=== PATIENT | female | born 2005 | race Caucasian/White ===

== ENCOUNTER 2024-05-01 20:12 | Emergency (ER) | payer OTHER ==
[2024-05-01 20:30] VITALS: BP 116/71; O2SAT 98
--- NOTE | 2024-05-01 20:51 | ED Physician Documentation ---
PD HPI SKIN - Stated complaint Stated Complaint: BAT EXPOSURE - Chief complaint Chief Complaint: Wound - History obtained from History obtained from: Patient - Additional information Additional information: 18-year-old female presents after getting hit in the head by a bat a few days ago. Today she felt some tingling sensation on the right side of the head. She did not get bit by the bat and had no injury but is fairly certain it was about that hit her while she was out walking a couple of days ago. She has not had any other symptoms. She is not vaccinated. PD PAST MEDICAL HISTORY - Past Medical History Past Medical History: No - Past Surgical History Past Surgical History: Yes HEENT: Tonsil/Adenoidectomy - Present Medications Home Medications: Ambulatory Orders Medication Instructions Recorded Confirmed No Known Home Medications 05/01/24 05/01/24 - Allergies Allergies/Adverse Reactions: Allergies Allergy/AdvReac Type Severity Reaction Status Date / Time No Known Drug Allergies Allergy Verified 05/01/24 20:25 - Social History Does the pt smoke?: No Smoking Status: Never smoker Does the pt drink ETOH?: No Does the pt have substance abuse?: No - Immunizations Immunizations are current?: Yes - POLST Patient has POLST: No PD ED PE NORMAL - Vitals Vital signs reviewed: Yes - General General: Alert and oriented X 3, No acute distress, Well developed/nourished - HEENT HEENT: Atraumatic, Moist mucous membranes - Cardiac Cardiac: RRR, No murmur - Respiratory Respiratory: No respiratory distress, Clear bilaterally - Derm Derm: Normal color, Warm and dry, No rash - Neuro Neuro: Alert and oriented X 3 Eye Opening: Spontaneous Motor: Obeys Commands Verbal: Oriented GCS Score: 15 - Psych Psych: Normal mood, Normal affect Results - Vitals Vitals: Vital Signs - 24 hr 05/01/24 20:19 Temperature 36.5 C Heart Rate 100 Respiratory 18 Rate Blood Pressure 116/71 O2 Saturation 98 Oxygen O2 Source Room air PD Medical Decision Making - ED course Complexity details: d/w patient ED course: 18-year-old female presents after getting hit by a bat while out walking a few days ago. She did not sustain any injuries or skin breakage, and was not bit by the bat but is very certain that she was hit by a bat. She is not vaccinated. She is visiting from [place] and is to return in about a week. I discussed with patient that she has option of receiving the rabies series but it is a 4 shot series and she will need to continue the series when she returns to [place] and it is quite stiff specific about when it needs to be administered. She states understanding would like to proceed. Will give her first vaccine here today, and I discussed that the thirdI informed the patient that she can receive the second vaccine on 05/04 and then she will get the third and fourth when she returns to [place] on 05/08 and 05/15. Return precautions discussed if she develops symptoms. Departure - Departure Disposition: 01 Home, Self Care Clinical Impression: Exposure to bat without known bite Condition: Good Instructions: Rabies Comments: As we discussed, the rabies series is a 4 shot series. The next shot will be due on day 3 which is Tuesday, May 04, and the third shot is due on May 08 and the 4 shot on May 15. Since you are returning to [place], you will need to arrange your other shots at the health department or you can call ahead to your primary care provider and see if they stock them. Forms: PCP List
[2024-05-01] MEDS: RABIES VACCINE 2.5 UNIT SYRINGE IM ONE (21:08)
== END 2024-05-01 21:27 | disposition home or self-care (01) ==
LOC: ED 20:12
DX: Z20.3 Contact with and (suspected) exposure to rabies (principal); Z23 Encounter for immunization
CPT/HCPCS: 90471; 99283

== ENCOUNTER 2024-05-04 20:51 | Emergency (ER) | payer OTHER ==
--- NOTE | 2024-05-04 21:20 | ED Physician Documentation ---
History of Present Illness - Stated complaint Stated Complaint: BAT EXPOSURE - Chief complaint Chief Complaint: Exposure - Additonal information Additional information: Patient is a 18-year-old female presents to the emergency department after bat exposure few days ago. Patient is here for her second dose of rabies 3 days after initial dose. Patient's initial bat exposure occurred 04/29. Patient was seen here 86 and presents today for another dose of rabies vaccine. The patient returns to [place] tomorrow and will plan for third and fourth doses in [place] with her PCP. She denies any adverse effects to initial dose. Patient did not receive rabies immunoglobulin with initial dose. 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 : None HEENT: None Psych: None Musculoskeletal: None Derm: None - Past Surgical History Past Surgical History: Yes HEENT: Tonsil/Adenoidectomy - Present Medications Home Medications: Ambulatory Orders Medication Instructions Recorded Confirmed No Known Home Medications 05/01/24 05/04/24 - Allergies Allergies/Adverse Reactions: Allergies Allergy/AdvReac Type Severity Reaction Status Date / Time No Known Drug Allergies Allergy Verified 05/04/24 21:07 - Social History Does the pt smoke?: No Smoking Status: Never smoker Does the pt drink ETOH?: No Does the pt have substance abuse?: No - Immunizations Immunizations are current?: Yes - POLST Patient has POLST: No Results - Vitals Vitals: Oxygen O2 Source Room air PD Medical Decision Making - ED course Complexity details: reviewed old records, reviewed results ED course: Patient 18-year-old female exposed to bat on 04/29 this was after a bat hit her while she was [place]. Patient was concern for rabies presented to the emergency department 05/01 was given first rabies vaccination. Patient was not given immunoglobulin at the time she did not sustain any injuries from the wound. I did discuss with pharmacy over the phone and reviewed protocol with them patient is immunocompetent but not vaccinated she received her first dose of rabies vaccine on the sixth this would be day 3 of her rabies vaccine she is within the time. For immunoglobulin to be given. Discussed with patient she is agreeable with receiving immunoglobulin here in the emergency department.Patient is returning to [place] and will receive rabies vaccine doses on the and as well. Patient agreeable with plan. Departure - Departure Disposition: 01 Home, Self Care Clinical Impression: Rabies exposure Condition: Good Comments: Your third and fourth doses of rabies vaccine should be on may 08 and as instructed previously. .Again you should confirm with your PCP that they have the vaccination and you should get it in the next few days.as instructed before Forms: PCP List Discharge Date/Time: 05/04/24 22:47
[2024-05-04] MEDS: RABIES VACCINE 2.5 UNIT SYRINGE IM ONE (22:05)
[2024-05-04] MEDS: RABIES IMMUNE GLOBULIN 300 UNITS/2 ML IM STA (22:10)
[2024-05-04 22:51] VITALS: BP 113/67; O2SAT 100
== END 2024-05-04 22:47 | disposition home or self-care (01) ==
LOC: ED 20:51
DX: Z20.3 Contact with and (suspected) exposure to rabies (principal); Z23 Encounter for immunization
CPT/HCPCS: 90471; 96372; 99283

== ENCOUNTER 2024-05-08 21:01 | Emergency (ER) | payer OTHER ==
[2024-05-08 21:10] VITALS: BP 117/66; O2SAT 100
--- NOTE | 2024-05-08 21:19 | ED Physician Documentation ---
History of Present Illness - Stated complaint Stated Complaint: BAT EXPOSURE - Chief complaint Chief Complaint: General - History obtained from History obtained from: Patient - Additonal information Additional information: The patient returns for another rabies vaccine injection on day 7 after an initial exposure to a bat. She has had her day 0 and day 3 injections already. She denies development of any symptoms. No reaction to previous injections. 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 : None HEENT: None Psych: None Musculoskeletal: None Derm: None - Past Surgical History Past Surgical History: Yes HEENT: Tonsil/Adenoidectomy - Present Medications Home Medications: Ambulatory Orders Medication Instructions Recorded Confirmed No Known Home Medications 05/01/24 05/08/24 - Allergies Allergies/Adverse Reactions: Allergies Allergy/AdvReac Type Severity Reaction Status Date / Time No Known Drug Allergies Allergy Verified 05/08/24 21:09 - Social History Does the pt smoke?: No Smoking Status: Never smoker Does the pt drink ETOH?: No Does the pt have substance abuse?: No - Immunizations Immunizations are current?: Yes - POLST Patient has POLST: No PD ED PE NORMAL - Vitals Vital signs reviewed: Yes - General General: Alert and oriented X 3, No acute distress, Well developed/nourished - HEENT HEENT: Atraumatic, EOMI, Moist mucous membranes - Neck Neck: Supple, no meningeal sign - Respiratory Respiratory: No respiratory distress - Derm Derm: Other (Appears dry and of normal color) - Neuro Neuro: Other (Alert, grossly intact) - Psych Psych: Normal mood, Normal affect Results - Vitals Vitals: Vital Signs - 24 hr 05/08/24 21:03 Temperature 37.0 C Heart Rate 68 Respiratory 16 Rate Blood Pressure 117/66 O2 Saturation 100 Oxygen O2 Source Room air PD Medical Decision Making - ED course Complexity details: considered differential, d/w patient ED course: The patient was given her rabies vaccine injection and advised that she would need to come back in 1 week from today for her day 14 injection. We have discussed sooner return if any issues with the injection she is given today. Departure - Departure Disposition: 01 Home, Self Care Clinical Impression: Exposure to bat without known bite Condition: Stable Comments: You will need to return in 1 week from today for your last rabies vaccine injection.
[2024-05-08] MEDS: RABIES VACCINE 2.5 UNIT SYRINGE IM ONE (21:33)
== END 2024-05-08 21:37 | disposition home or self-care (01) ==
LOC: ED 21:01
DX: Z20.3 Contact with and (suspected) exposure to rabies (principal); Z23 Encounter for immunization
CPT/HCPCS: 90471; 99283